=== PATIENT | female | born 1975 | race Two or more races ===

== ENCOUNTER 2024-05-02 19:16 | Emergency (ER) | payer MEDICAID, SELFPAY ==
[2024-05-02] VITALS (10 sets, daily range): BP systolic 99–130; BP diastolic 72–81; PULSE 77–185; RESP 16–99; TEMP 36.4; O2SAT 97–100; BMI 27.1
--- NOTE | 2024-05-02 19:22 | EKG_ITS ---
[facility] Test Date: 2024-05-02 Pat Name: CAYETANO CONNOLLY Department: Room: - Gender: Female [employer] Operator: : [id number] Requested By: Vaughn Dover Order Number: [id number] Reading MD: Vaughn Dover Measurements Intervals [place] Rate: 95 P: 53 SC: 152 QRS: 58 QRSD: 85 T: 1 QT: 369 QTc: 464 Interpretive Statements SINUS RHYTHM NONSPECIFIC T-WAVE ABNORMALITY No previous ECG available for comparison /store/[email or web address]/[id number].pdf
[2024-05-02] MEDS: ADENOSINE INJ 3 MG/ML VIAL 12 MG IVP (19:29)
[2024-05-02] MEDS: SODIUM CHLORIDE 0.9% 1000 ML 1,000 ML 999 ML IV ×2 (19:29→22:33)
--- NOTE | 2024-05-02 19:34 | EDNOTE_ITS ---
ED Arrhythmia Palp. RME/HPI General Chief Complaint: Arrhythmia/Palpitations Stated Complaint: SVT Time Seen by Provider: 05/02/24 19:22 Arrival date/time: 05/02/24 19:16 RME / HPI RME / HPI narrative: Dr. Del Rosario?s Main ED Evaluation: 48yo female with a history of SVT on metoprolol BIBA from home presents to the ED for a chief complaint of near syncope. Per EMS, patient was doing yardwork in her back yard when she started feeling fatigued and generally weak. She states she's been feeling dizzy over the last 2-3 days, reporting she went to her PCP's office today. 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 Last blood pressure with EMS was 110/47. She denies any cough, fever, chills or any other associateds symptoms. Denies any alcohol or illicit drug use. She states she has been compliant with her medications. No known allergies. Related Data Allergies Allergy/AdvReac Type Severity Reaction Status Date / Time No Known Allergies Allergy Verified 05/02/24 20:38 Review of Systems Review of Systems Systems Reviewed: All systems reviewed, normal except as documented Past Medical History Social History SMOKING STATUS: Never smoker ED Exam Narrative Physical exam: GENERAL APPEARANCE: alert and oriented x 4, well-developed, well-nourished, no acute distress VITALS: All vitals were reviewed and the pulse ox is 97% on room air, which is normal according to my interpretation. HEENT: Normocephalic, atraumatic; pupils equal, round, reactive to light; EOMI; mucous membranes pink, moist; oropharynx clear NECK: Supple LUNGS: CTABL; no wheezes, no rales, no rhonchi HEART: Tachycardic, regular rhythm; normal S1, S2; no murmurs ABDOMEN: non distended; normal BS; soft, no tenderness, no guarding, no rebound; no masses, no organomegaly, no hernia BACK: no CVA tenderness EXTREMITIES: atraumatic; no edema NEUROLOGIC: awake; alert and oriented x4; cranial nerves II-XII grossly intact; no focal sensory or motor deficits PSYCHIATRIC: appropriate mood and affect SKIN: warm, dry, normal color; no rashes Course Course Course Narrative: 1931: Adenosine 6mg given. Patient converted to sinus tachycardia with a rate of 105. CXR is ordered for determining the etiology of palpitations. Quality Measures none Orders Category Date Time Status Steel Melter NOW Care 05/02/24 19:23 Active EKG (ED ONLY) *Do not use* NOW Care 05/02/24 19:23 Completed In and Out Catheter X1 Care 05/02/24 19:22 Active Insert IV NOW Care 05/02/24 19:23 Active EKG (ED Only) Stat Exams 05/02/24 19:22 Ordered CBC Stat Lab 05/02/24 19:23 Ordered Comprehensive Metabolic Panel Stat Lab 05/02/24 19:23 Ordered Drug Screen,Urine Stat Lab 05/02/24 19:23 Ordered Free T4 (Free Thyroxine) Stat Lab 05/02/24 19:23 Ordered HCG Qualitative,Urine Stat Lab 05/02/24 19:23 Ordered Magnesium Stat Lab 05/02/24 19:23 Ordered Partial Thromboplastin Time Stat Lab 05/02/24 19:23 Ordered Prothrombin Time with INR Stat Lab 05/02/24 19:23 Ordered Thyroid Stimulating Hormone Stat Lab 05/02/24 19:23 Ordered Troponin I Stat Lab 05/02/24 19:23 Ordered Urinalysis Stat Lab 05/02/24 19:23 Ordered Adenosine 6mg Inj [Adenocard Inj] Med 05/02/24 19:22 Discontinued 12 mg IVP X1 ONE Sodium Chloride 0.9% 1000 ml [Ns] 1,000 ml Med 05/02/24 19:22 Active IV 999 mls/hr Oxygen Delivery NOW RT 05/02/24 19:23 Active Reevaluation(s) Reevaluation #1: Patient feels significantly better and is asymptomatic. She denies any chest pain, palpitations, N/V or any other associated symptoms. She is requesting to go home. Time: 01:37 Vital Signs Vital signs: Vital Signs Pulse Rate 181 H 05/02/24 19:29 Blood Pressure 99/76 05/02/24 19:29 Arrhythmia/Palpitations MDM Narrative MDM Narrative:: Scribe Attestation: 05/02/24 - Meghna Marquez am scribing for and in the presence of Dr. Del Rosario. Patient data External records reviewed:: [facility] previous records (Per chart review, patient has no previous ED visits or admissions to this facility.) Clinical information provided by:: patient and EMS Social determinants that could affect healthcare access:: none Patient has the following chronic illnesses:: none How is presenting disease/condition affected by chronic disease/condition?: no chronic disease Evaluation data The following diagnostics were reviewed and interpreted by me:: lab results, radiology exam(s) and EKG tracing(s) Lab and/or radiology exams considered but not ordered:: none Interpretation Summary: WBC count is normal at 8.3, HnH is 10.5/34.9, Platelets are 582, Potassium is elevated at 5.6, Initial Troponin is elevated at 0.082, Repeat troponin is elevated at 0.219, TSH and Free T4 are normal, UDS is negative, according to my interpretation. CXR shows normal cardiac silhouette, normal sharp diaphragmatic edge, no infiltrates, normal costophrenic angles, according to my interpretation. EKG done at 1937, NSR, rate of 95. normal axis, no ectopy, nonspecific ST abnormalities in the inferior leads, no STEMI, according to my interpretation. Repeat EKG done at 0149, NSR, rate of 70, normal axis, no ectopy, no acute ischemia, according to my interpretation. Medications / Prescriptions Medications or Prescriptions considered but not ordered:: none Medication administrations:: Medication Administration History Sodium Chloride (Ns) 1,000 mls @ 999 mls/hr IV .Q1H1M ONE Stop: 05/02/24 20:22 Last Admin: 05/02/24 19:29 Dose: 999 mls/hr Documented By: KD Discontinued Medications Adenosine (Adenosine Inj 3 Mg/Ml Vial) 12 mg IVP X1 ONE Stop: 05/02/24 19:23 Last Admin: 05/02/24 19:29 Dose: 6 mg Documented By: KD see above Consultations Consultation(s) initiated? (list below): No Diagnosis Differential diagnosis arrhythmia/palpitations: anxiety, sinus tachycardia, artial fibrillation, artial flutter and supraventricular tachycardia Most likely diagnosis given after review of the tests above:: see below Admission Indicated Admission indicated?: not indicated Explain why admission is indicated or not indicated:: No criteria for admission. Admission Request Was there a request for admission?: No Disposition Plan Disposition Plan: Discharge Discharge Attestation Discharge Attestation: The patient and all family members were given an opportunity to ask questions and understood the discharge instructions. Discharge instructions specifically effects, indications for sooner follow up or return to the emergency department, and the expected course of current diagnosis. Patient condition: Stable Discharge Plan Plan Patient Disposition: HOME (Self Care) Disposition Comment: Stable for discharge Patient condition on transfer: Stable Prescriptions/Referrals Referrals: Juwan Benson MD [Primary Care Provider] - In 1 week Cony Thomas MD [Physician] - In 1 week Problem List Clinical Impression: Supraventricular tachycardia Patient/Caregiver Discharge Instructions Discharge Activity: activity as tolerated Education Materials: Supraventricular Tachycardia, Your Heart's Electrical System, Understanding Supraventricular ..., Treatment for Supraventricular ..., ED About Arrhythmias Additional Instructions: Please return to the emergency department if you have any worsening or any further medical problems and we will help you. You should follow-up with your primary care doctor within the next several days. Continue the office address and phone number for our archeologist classical on-call. He is our heart doctor. You should call the office and make an appointment and follow-up. There may be some medications that you need to prevent your symptoms going back into supraventricular tachycardia. Print Language: Syrian Stand Alone Forms: Ellie Award Info., Patient Portal Info Letter
[2024-05-02 20:49] LABS: Collection Type, Urine Catheter; RBC,Urine 0 /hpf (0-3); Squamous Epithelial Cell,Urine 0 /hpf (0-5)
[2024-05-02 21:15] LABS: Basophils % (Auto) 0 % (0-2.5); Eosinophils % (Auto) 1 % (0-10); Hematocrit 34.9 % (36.0-46.0); Hemoglobin 10.5 g/dL (12.0-16.0); Immature Granulocytes % (Auto) 0 % (0-0); Immature Granulocytes Auto 0.02 Thou/mm3 (0.00-0.00); Lymphocytes # (Auto) 1.1 Thou/mm3 (1.0-4.8); Lymphocytes % (Auto) 13 % (10-50); Mean Corpuscular HGB Conc 30.1 g/dl (31.0-37.0); Mean Corpuscular Hemoglobin 21.9 pg (25.0-35.0); Mean Corpuscular Volume 73 fL (80-100); Monocytes # (Auto) 0.5 Thou/mm3 (0.0-0.8); Monocytes % (Auto) 6 % (0-12); Neutrophils # (Auto) 6.7 Thou/mm3 (1.8-7.7); Neutrophils % (Auto) 80 % (37-80); Nucleated Red Blood Cell % 0 /100 WBC (0); Platelet Count 582 Thou/mm3 (140-440); Red Blood Count 4.79 Miln/mm3 (4.00-5.20); White Blood Count 8.3 Thou/mm3 (3.6-11.0)
[2024-05-02 21:21] LABS: Amphetamine/Methamp Scrn,U Negative (Negative); Barbiturate Screen,Urine Negative (Negative); Benzodiazepines Screen,Urine Negative (Negative); Benzoylecgonine Screen, Ur Negative (Negative); Fentanyl Screen,Urine Negative (Negative); Opiate Screen,Urine Negative (Negative); THC Screen,Urine Negative (Negative)
[2024-05-02 21:29] LABS: Alanine Aminotransferase 170 U/L (10-49); Albumin, Serum 4.1 gm/dL (3.5-5.0); Anion Gap 10 (7-16); Aspartate Amino Transferase 251 U/L (0-34); BUN/Creatinine Ratio 15 Ratio (12-20); Bilirubin,Total 0.3 mg/dL (0.3-1.2); Blood Urea Nitrogen 9 mg/dL (9-23); Calcium 8.5 mg/dL (8.3-10.6); Calcium (Corrected) 8.5 mg/dL (8.5-10.1); Carbon Dioxide 23.5 mMol/L (20.0-31.0); Chloride 110 mMol/L (98-107); Creatinine (Component) 0.6 mg/dL (0.6-1.3); Estimated Creatinine Clearance 108.9 mL/min (>60); Glucose 83 mg/dL (74-106); Osmolality,Calculated 282 (275-295); Potassium 5.6 mMol/L (3.4-5.1); Sodium 143 mMol/L (136-145); eGFR > 60 See Note
[2024-05-02 21:30] LABS: Albumin/Globulin Ratio 1.4 (1.2-2.2); Alkaline Phosphatase 141 U/L (46-116); Free T4 (Free Thyroxine) 1.37 ng/dL (0.89-1.76); Globulin 2.9 gm/dL (2.3-3.5); Thyroid Stimulating Hormone 1.49 uIU/mL (0.55-4.78)
--- NOTE | 2024-05-02 21:30 | XR_ITS ---
Examination: AP chest single view Technique one AP portable upright chest single view Exam date and time: May 02, 2024 2151 hrs. Indications: Onset supraventricular tachycardia today. Findings: Normal heart size No pneumonia or pulmonary edema Moderate osteopenia Impression: No pneumonia or pulmonary edema
[2024-05-02 21:42] LABS: Bilirubin,Urine Negative (Negative); Blood,Urine 1+ (Negative); Clarity,Urine Clear (Clear/Hazy); Color,Urine Colorless (Lt Yel-Yel); Glucose, Urine Negative (Negative); Ketones,Urine Negative (Negative); Leukocyte Esterase,Urine Negative (Negative); Nitrite,Urine Negative (Negative); PH,Urine 6.5 (5.0-7.0); Protein,Urine Negative (Neg - Trace); Specific Gravity,Urine 1.005 (1.001-1.035); Urobilinogen,Urine Negative mg/dL (0.0-1.0); WBC,Urine < 1 /hpf (0-5)
[2024-05-02 21:48] LABS: Troponin I 0.082 ng/mL (0.0-0.045)
[2024-05-02 21:49] LABS: HCG Qualitative,Urine Negative
[2024-05-03] VITALS (7 sets, daily range): BP systolic 121–137; BP diastolic 74–87; PULSE 69–79; RESP 15–20; TEMP 36.9; O2SAT 99–100
[2024-05-03 00:28] LABS: Alanine Aminotransferase 130 U/L (10-49); Albumin, Serum 3.5 gm/dL (3.5-5.0); Albumin/Globulin Ratio 1.4 (1.2-2.2); Alkaline Phosphatase 117 U/L (46-116); Anion Gap 8 (7-16); Aspartate Amino Transferase 162 U/L (0-34); BUN/Creatinine Ratio 14 Ratio (12-20); Bilirubin,Total 0.2 mg/dL (0.3-1.2); Blood Urea Nitrogen 7 mg/dL (9-23); Calcium 8.2 mg/dL (8.3-10.6); Calcium (Corrected) 8.6 mg/dL (8.5-10.1); Carbon Dioxide 22.4 mMol/L (20.0-31.0); Chloride 115 mMol/L (98-107); Creatinine (Component) 0.5 mg/dL (0.6-1.3); Estimated Creatinine Clearance 130.7 mL/min (>60); Globulin 2.5 gm/dL (2.3-3.5); Glucose 122 mg/dL (74-106); Osmolality,Calculated 287 (275-295); Potassium 4.6 mMol/L (3.4-5.1); Sodium 145 mMol/L (136-145); eGFR > 60 See Note
[2024-05-03 00:49] LABS: Troponin I 0.219 ng/mL (0.0-0.045)
== END 2024-05-03 02:18 | disposition home or self-care (01) ==
PROVIDERS: Emergency Provider Emergency Medicine; PCP Family Medicine
DX: I47.10 Supraventricular tachycardia, unspecified (principal); R94.31 Abnormal electrocardiogram [ECG] [EKG]; R79.89 Other specified abnormal findings of blood chemistry
CPT/HCPCS: 36415; 71045; 80053; 80307; 81001; 81025; 83735; 84439; 84443; 84484; 85025; 85610; 85730; 93005; 96361; 96374; 99284; J0153; J7030